=== PATIENT | female | born 1985 | race Caucasian/White ===

== ENCOUNTER 2022-08-19 12:49 | Day surgery (SDC) | payer OTHER ==
[2022-08-19] MEDS ORDERED: Lactated Ringers 1,000 ML IV SCH (13:00)
[2022-08-19] MEDS ORDERED: Lactated Ringers 1,000 ML IV ONE ×2 (13:18→15:46)
[2022-08-19] MEDS ORDERED: Xylocaine-Mpf 2% 5 Ml Vial ONE (15:06)
[2022-08-19] MEDS ORDERED: DIPRIVAN 200 MG/20 ML IV ONE ×3 (15:06→15:35)
[2022-08-19] MEDS ORDERED: Versed 2 MG/2 ML Injection ONE (15:06)
[2022-08-19 16:41] VITALS: BP 149/90; PULSE 71; O2SAT 99
--- NOTE | 2022-08-20 10:16 | OP ---
SURGERY DATE: 08/19/2022 SURGERY TIME: 1510 PREOPERATIVE DIAGNOSIS: 1. RECTAL BLEEDING. POSTOPERATIVE DIAGNOSIS: 1. RECTAL BLEEDING. 2. COLONIC POLYP. PROCEDURE: 1. Colonoscopy with hot snare polypectomy and cold forceps biopsies. SURGEON: Dr. Treva Emmanuel. ANESTHESIA: MAC. ESTIMATED BLOOD LOSS: Minimal. COMPLICATIONS: None. SPECIMENS: 1. Splenic flexure polyp. 2. Random right colon biopsy. 3. Random left colon biopsy. REMINDER: Colonoscopy in 5 years. PROCEDURE DETAILS: This is a 37 y/o female who has rectal bleeding who has presented for colonoscopy. She only has lower gastrointestinal bleeding suspected with bright red blood. Risks, benefits, and alternatives regarding colonoscopy have been discussed with her in detail. Her H&P and consent reviewed with her and confirmed. All questions answered. She was then laid in the left lateral decubitus position. Complete time-out performed. First, a rectal inspection was done including the perianal area and then a rectal exam was done. She does not have any obvious tears in the anal mucosa. There are no masses. There is no bleeding. There is no old blood. I do not see a fissure. I do not see any significantly enlarged or bleeding hemorrhoids. We then inserted the scope and gently advanced this to the level of the cecum. The prep was satisfactory, but she did have staining throughout much of the ascending colon and then patchy throughout the remainder of the colon. I attempted to wash this off and just the irrigation alone caused her to have 2 small areas of bleed in the ascending colon near to the cecum. These stopped on their own and this was ensured, but this made me suspicious that her mucosa is very fragile. This does not normally happen. The irrigation is not high powered. We did turn our irrigation down and then I carefully withdrew the scope. I did see her terminal ileum which was normal. Her valve was normal and her appendiceal orifice was normal. As we withdrew the scope, we saw as much mucosa as we could. Again the view was satisfactory. She did have some staining of stool, so a very small or flat polyp could be missed with the prep. I took two biopsies, one in the right colon and one in the left colon to check for underlying microscopic pathology since her tissue is so fragile. These were confirmed to be hemostatic and the sites looked good. She also had one polyp in the splenic flexure taken with a hot snare in entirety. This was a semipedunculated approximately 6 mm polyp. This was retrieved and sent to pathology. This site was confirmed to be hemostatic. We then further withdrew the scope. Patient tolerated the procedure very well and no other findings. Plan will be for another colonoscopy in about 5 years due to her family history, her prep, and the finding of a polyp for surveillance, sooner should she have any new or worsening issues. I have discussed with her family her postoperative results and I recommended powder fiber supplements and increased water intake. I think whenever she has a stool, it is tearing her mucosa just slightly like an abrasion and will see if this can help the bleeding stop. If not, we will discuss other options and I have also asked her to avoid NSAIDS and fish oil at this time. If she has any other areas where she has easily bleeding then I have discussed with her family to let her primary care physician know for a bleeding work-up.
== END 2022-08-19 16:33 | disposition home or self-care (01) ==
LOC: SDC 12:49
PROVIDERS: ATTEND Surgery
DX: K63.5 Polyp of colon (principal); K62.5 Hemorrhage of anus and rectum
CPT/HCPCS: 36415; 84703; J2250; J2704